=== PATIENT | female | born 1945 | race African-American/Black ===

== ENCOUNTER 2017-03-31 05:43 | Emergency (ER) | payer OTHER, MEDICARE ==
[~2017-03-31] VITALS: Ht 154.9 cm; Wt 59.0 kg
[~2017-03-31 05:43] MED LIST: ALPR-392 PO; LORA0.5T2 PO
[2017-03-31 07:16] LABS: BASOPHILS % 0.9 % (0.0-2.0); EOSINOPHILS % 0.9 % (0.0-5.0); HEMOGLOBIN. 12.4 g/dL (12.0-16.0); LYMPHOCYTES % 28.8 % (20.0-50.0); MEAN CORPUSCULAR HEMOGLOBIN 23.2 pg (28.0-32.0); MEAN CORPUSCULAR VOLUME 71.4 fL (81.0-99.0); MEAN PLATELET VOLUME 8.3 fl (7.4-10.4); MONOCYTES % 5.7 % (2.0-8.0); NEUTROPHILS % 63.7 % (40.0-76.0); PLATELET 183 x1000/uL (130-400); RED BLOOD CELL COUNT 5.32 mill/uL (4.2-5.4); RED CELL DISTRIBUTION WIDTH 15.1 % (11.6-14.6)
[2017-03-31 07:18] LABS: CHLORIDE 105 mEq/L (98-107)
[2017-03-31 07:19] LABS: PROTHROMBIN TIME 10.7 sec (9.4-11.6)
[2017-03-31 07:29] LABS: CARBON DIOXIDE 29 mEq/L (21-32); TROPONIN I < 0.02 ng/mL (0.00-0.04)
[2017-03-31 10:23] VITALS: BP 142/87
== END 2017-03-31 10:39 | disposition home or self-care (01) ==
LOC: ER 05:59
DX: R41.3 Other amnesia (principal); R20.2 Paresthesia of skin; E11.9 Type 2 diabetes mellitus without complications; Z86.73 Personal history of transient ischemic attack (TIA), and cerebral infarction without residual deficits
CPT/HCPCS: 36415; 70450; 70551; 71010; 80053; 83880; 84484; 85025; 85610; 93005; 99285; Z7610

== ENCOUNTER 2017-08-10 09:45 | Emergency (ER) | payer MEDICARE, OTHER ==
[~2017-08-10] VITALS: Ht 160 cm; Wt 65.0 kg
[2017-08-10 09:53] VITALS: BP 163/84
== END 2017-08-10 14:47 | disposition left against medical advice (07) ==
LOC: ER 10:39
DX: R42 Dizziness and giddiness (principal); Z53.21 Procedure and treatment not carried out due to patient leaving prior to being seen by health care provider

== ENCOUNTER 2018-08-05 07:33 | Emergency (ER) | payer OTHER ==
[~2018-08-05] VITALS: Ht 154.9 cm; Wt 59.0 kg
[2018-08-05] MEDS ORDERED: FAMOTIDINE 20MG/2ML VIAL IV STA (08:42)
[2018-08-05] MEDS ORDERED: ONDANSETRON HCL 4MG/2ML INJ IV STA (08:42)
[2018-08-05] MEDS ORDERED: SODIUM CHLORIDE 0.9% 500 ML IV ONE (08:42)
[2018-08-05 09:06] LABS: HEMATOCRIT. 44.2 % (36.0-48.0); HEMOGLOBIN. 14.1 g/dL (12.0-16.0); MEAN CORPUSCULAR HEMOGLOBIN 23.1 pg (28.0-32.0); MEAN CORPUSCULAR VOLUME 72.3 fL (81.0-99.0); RED BLOOD CELL COUNT 6.12 mill/uL (4.2-5.4); RED CELL DISTRIBUTION WIDTH 14.8 % (11.6-14.6)
[2018-08-05 09:12] LABS: CHLORIDE 102 mEq/L (98-107)
[2018-08-05 09:46] LABS: PLATELET ESTIMATE NORMAL
[2018-08-05 09:47] LABS: CLARITY URINE CLEAR (CLEAR); COLOR URINE YELLOW (YELLOW); KETONES URINE NEGATIVE (NEGATIVE); LEUKOCYTE ESTERASE URINE NEGATIVE (NEGATIVE); NITRITE URINE NEGATIVE (NEGATIVE); OCCULT BLOOD URINE NEGATIVE (NEGATIVE); PH URINE 8.5 (4.5-8.0); PROTEIN URINE NEGATIVE (NEGATIVE); SPECIFIC GRAVITY URINE 1.009 (1.005-1.030); UROBILINOGEN URINE 0.2 E.U./dL (0.2-1.0)
[2018-08-05] MEDS ORDERED: NA PHOS,M-B/NA PHOS,DI-BA ENEMA 118ML PR ONE (10:45)
[2018-08-05 13:33] VITALS: BP 117/74
== END 2018-08-05 13:34 | disposition home or self-care (01) ==
LOC: ER 07:33
DX: R10.9 Unspecified abdominal pain (principal); K59.00 Constipation, unspecified; R11.0 Nausea; I10 Essential (primary) hypertension; J44.9 Chronic obstructive pulmonary disease, unspecified
CPT/HCPCS: 36415; 71045; 74176; 80053; 81003; 83690; 83880; 84484; 85025; 85610; 93005; 96361; 96374; 96375; 99284; J2405; J3490; J7040; Z7610

== ENCOUNTER 2023-03-03 13:36 | Emergency (ER) | payer MEDICARE, OTHER ==
[~2023-03-03] VITALS: Ht 152.4 cm; Wt 73.4 kg
[~2023-03-03 13:36] MED LIST changes: -ALPR-392 PO; +ATOR40TA70 PO; +DONE5TAB33 PO; +EMPA10TA PO; -LORA0.5T2 PO; +LOSA-413 PO; +QUET25TA PO
[2023-03-03 13:55] VITALS: BP 135/71; PULSE 92; RESP 18; TEMP 98.1; O2SAT 98
[2023-03-03 14:23] LABS: BASOPHILS % 0.3 % (0.0-2.0); DIFFERENTIAL COMMENT 0; EOSINOPHILS % 0.8 % (0.0-5.0); HEMOGLOBIN. 13.2 g/dL (12.0-16.0); LYMPHOCYTES % 20.4 % (20.0-50.0); MEAN CORPUSCULAR HGB CONC 32.2 g/dL (31.0-37.0); MEAN CORPUSCULAR VOLUME 71.3 fL (81.0-99.0); MEAN PLATELET VOLUME 8.8 fl (7.4-10.4); MONOCYTES % 5.2 % (2.0-8.0); NEUTROPHILS % 73.3 % (40.0-76.0); PLATELET 194 x1000/uL (130-400); RED BLOOD CELL COUNT 5.75 mill/uL (4.2-5.4); RED CELL DISTRIBUTION WIDTH 15.8 % (11.6-14.6); WHITE BLOOD COUNT 7.9 x1000/uL (4.5-11.0)
[2023-03-03 14:28] LABS: CHLORIDE 103 mEq/L (98-107); INDEX HEMOLYSI 1 (1-3); INDEX ICTERIC 1 (1-4); INDEX LIPEMIC 1 (1-3); SODIUM 137 mEq/L (136-145)
[2023-03-03 14:38] LABS: ALANINE AMINOTRANSFERASE 19 IU/L (13-61); ALBUMIN 3.6 g/dL (3.4-5.0); ASPARTATE AMINOTRANSFERASE 14 IU/L (15-37); BILIRUBIN TOTAL 0.5 mg/dL (0.1-1.0); CALCIUM 9.1 mg/dL (8.5-10.1); CARBON DIOXIDE 25 mEq/L (21-32); CREATININE 0.8 mg/dL (0.6-1.3); GLUCOSE 158 mg/dL (70-105); PROTEIN TOTAL 7.9 g/dL (6.0-8.3); UREA NITROGEN BLOOD 13 mg/dL (7-21)
[2023-03-03 15:44] LABS: TROPONIN I HIGH SENSITIVITY 5 ng/L (<54)
[2023-03-03 16:03] LABS: CLARITY URINE CLEAR (CLEAR); COLOR URINE YELLOW (YELLOW); GLUCOSE URINE NEGATIVE (NEGATIVE); KETONES URINE NEGATIVE (NEGATIVE); LEUKOCYTE ESTERASE URINE NEGATIVE (NEGATIVE); NITRITE URINE NEGATIVE (NEGATIVE); OCCULT BLOOD URINE NEGATIVE (NEGATIVE); PH URINE 5.5 (4.5-8.0); PROTEIN URINE NEGATIVE (NEGATIVE); SPECIFIC GRAVITY URINE 1.008 (1.005-1.030)
== END 2023-03-03 17:00 | disposition home or self-care (01) ==
LOC: ER 13:36
DX: R11.2 Nausea with vomiting, unspecified (principal)
CPT/HCPCS: 36415; 80053; 81003; 84484; 85025; 93005; 99284